=== PATIENT | male | born 1955 | race Caucasian/White ===

== ENCOUNTER 2016-08-04 23:14 | Inpatient (IN) | payer MEDICARE, BC ==
[~2016-08-04] VITALS: Ht 180.3 cm; Wt 128.6 kg
--- NOTE | ~2016-08-04 | EC ---
PATIENT:MILDRED BOYD DATE OF SERVICE: 08/06/16 SEX: M MEDICAL RECORD: [id number] DATE OF : [birth year] LOCATION:D.MS [facility] AGE OF PATIENT: 60 ADMISSION DATE: 08/06/16 REFERRING PHYSICIAN: INTERPRETING PHYSICIAN: MINA GRUBBS MD ECHOCARDIOGRAM REPORT ECHO CHARGES 4 ECHO COMPLETE CLINICAL DIAGNOSIS: FEVER/UNSTEADY GAIT ECHOCARDIOGRAPHIC MEASUREMENTS (adult normal given) AC root (d.<3.7cm) 3.4 LV Septum d (<1.2 cm> 1.1 Valve Excursion 1.8 LV Septum (systole) 1.6 Left Atria (s.<4.0cm> 3.9 LVPW d(<1.2cm) 1.1 RV (d.<2.3cm) 3.0 LVPW (sytole) 1.5 LV diastole(<5.6CM) 5.6 MV E-F(>70mm/sec) LV systole 3.8 LVOT Diameter 2.1 MV exc.(>10mm) 1.5 Est.ejection fraction (50-75%) Pericardial Effusion N DOPPLER: LVIT A 55.0 E 114 LA RVSP 28.0 LVOT 102 AOP1/2T Asc. Ao 147 RVOT 41.0 RA PA 77.0 AV Gradient Peak 8.7 AV Mean 4.7 AV Area 2.5 MV Gradient Peak 5.1 MV Mean 1.6 MV Area COMMENTS: Restorative Care Technician: Senia HARPEROE Waterproofer:1 Dr. Grubbs TAPE# PACS DATE OF SERVICE: 08/09/2016 Echocardiogram FINDINGS: 1. Left ventricular chamber size is within normal limits. Left ventricular systolic function is normal. Overall ejection fraction estimated at 55%. 2. Left atrium is within normal limits at 3.9 cm. Right atrium and right ventricular chamber sizes are mildly dilated. 3. Valvular structures have normal structure and motion. ECHOCARDIOGRAM REPORT [id number] MILDRED BOYD 4. Doppler interrogation reveals moderate mitral regurgitation, mild tricuspid regurgitation, no other valvular insufficiency or stenosis. Pulmonary systolic pressure is normal estimated 28 mmHg. 5. No evidence of pericardial effusion or left ventricular thrombus. TRANSINT:[id number] Voice Confirmation ID: [id number] DOCUMENT ID: [id number] MINA GRUBBS MD CC: [id number] DICTATION DATE: 08/10/16 1139 ABSTRACTER: 08/10/16 1646 ADM IN [facility] [address] [facility]
[~2016-08-04 23:14] MED LIST: ALDACTONE25 MG PO; CELEBREX200 MG PO; COREG6.25 MG PO; DEMADEX10 MG PO; K-DUR20 MEQ PO; PERCOCET 10/3251 TA1 PO
[2016-08-04 23:50] LABS: APPEARANCE CLEAR (CLEAR); BILIRUBIN NEGATIVE (NEGATIVE); COLOR YELLOW (YELLOW); GLUCOSE 1000 mg/dL (NEGATIVE); KETONE NEGATIVE (NEGATIVE); LEUKOCYTE ESTERASE NEGATIVE (NEGATIVE); NITRITE NEGATIVE (NEGATIVE); PROTEIN NEGATIVE (NEGATIVE); UROBILINOGEN NORMAL (NORMAL)
[2016-08-05 00:10] LABS: BASOPHILS 0.1 % (0-2); EOSINOPHILS 0.4 % (0-7); HEMATOCRIT 37.9 % (42.0-54.0); HEMOGLOBIN 12.6 g/dL (13.5-17.5); IMMATURE GRANULOCYTES 0.3 % (0-5); LYMPHOCYTES 8.4 % (15-50); MCH 32.7 pg (26.0-34.0); MCHC 33.2 g/dL (31.0-37.0); MCV 98.4 fL (80.0-100.0); MEAN PLATELET VOLUME 9.4 fL (7.4-10.4); MONOCYTES 11.2 % (2-11); NEUTROPHILS 79.6 % (40-80); RBC 3.85 10x6/uL (4.20-6.10); RDW 15.1 % (11.5-14.5); WBC 7.9 10x3/uL (4.8-10.8)
[2016-08-05 00:17] LABS: PLATELET COUNT 250 10x3/uL (130-400)
[2016-08-05 00:30] LABS: ALBUMIN 3.8 g/dL (3.4-5.0); ANION GAP 16.2 mmol/L (8-16); BILIRUBIN - TOTAL 0.46 mg/dL (0.2-1.3); CALCIUM 8.9 mg/dL (8.5-10.1); CARBON DIOXIDE 24.9 mmol/L (21.0-32.0); CREATININE - SERUM 2.2 mg/dL (0.6-1.3); POTASSIUM - SERUM 4.1 mmol/L (3.5-5.1); PROTEIN - SERUM 7.9 g/dL (6.4-8.2)
[2016-08-05 03:23] VITALS: BP 139/76; BMI 40.5
--- NOTE | 2016-08-05 07:05 | NUR ---
PATIENT RECEIVED ALERT IN LOW GARZA POSITION. NO SIGNS OF DISTRESS NOTED. DENIES NEEDS. SIDE RAILS UP X2. BED IN LOW POSTIION. CALL LIGHT IN REACH.
[2016-08-05 07:58] VITALS: BP 123/73
[2016-08-05] MEDS ORDERED: [UNRECOGNIZED DRUG - OTHER] PO (08:18)
[2016-08-05] MEDS ORDERED: METANX PO (08:18)
[2016-08-05] MEDS ORDERED: NUCYNTA ER150 MG PO (08:21)
[2016-08-05] MEDS ORDERED: MOBIC7.5 MG PO (08:24)
--- NOTE | 2016-08-05 08:30 | NUR ---
PATIENT IN LOW GARZA POSITION RESTING WITH EYES CLOSED. RESPIRATIONS EVEN AND UNLABORED. WAKES EASY. DENIES NEEDS. SIDE RAILS UP X2. BED IN LOW POSITION. CALL LIGHT IN REACH.
--- NOTE | 2016-08-05 11:18 | NUR ---
ALERT IN BED. NO SIGNS OF DISTRESS NOTED. SCHEDULED MEDICATION AMINISTERED. SIDE RAILS UP X2. BED IN LOW POSITION. CALL LIGHT IN REACH.
[2016-08-05 12:06] VITALS: BP 121/71
[2016-08-05 12:15] LABS: HEMOGLOBIN A1C 6.3 % (4.8-6.0)
[2016-08-05 12:26] LABS: THYROID STIMULATING HORMONE 0.78 uIU/mL (0.36-3.74)
--- NOTE | 2016-08-05 13:20 | NUR ---
PATIENT SITTING UP ON SIDE OF BED ALERT. NO SIGNS OF DISTRESS NOTED. BED IN LOW POSITION. CALL LIGHT IN REACH.
[2016-08-05] MEDS ORDERED: TRAZODONE HCL150 MG PO (13:41)
[2016-08-05] MEDS ORDERED: FARXIGA10 MG PO (13:42)
[2016-08-05 13:43] VITALS: Ht 180.3 cm; Wt 128.6 kg
[2016-08-05] MEDS ORDERED: MAG 6464 MG PO (13:43)
--- NOTE | 2016-08-05 15:22 | NUR ---
UP AMBULATING IN ROOM. NO SIGNS OF DISTRESS NOTED. GUEST AT BEDSIDE.
[2016-08-05 15:58] LABS: CKMB 1.4 U/L (0.0-3.6); CREATINE KINASE 264 UL (21-232); TROPONIN-I < 0.017 ng/mL (0.000-0.060)
--- NOTE | 2016-08-05 17:15 | NUR ---
PATIENT ALERT IN BED. NO SIGNS OF DISTRESS NOTED. REFUSES SCDS
--- NOTE | 2016-08-05 18:20 | NUR ---
INCENTIVE SPIROMETER AND USE ON TEACHING PROVIDED. PATIENT STATES UNDERSTANDING. DEEMONSTRATES CORRECT USE.
--- NOTE | 2016-08-05 19:00 | NUR ---
PATIENT JUST RETURNED FROM CT. AAOX4. RR EVEN AND UNLABORED. 0 S/S OF DISTRESS. DENIES ANY PAIN. IV TO RIGHT HAND PATENT WITH NO REDNESS OR SWELLING. O2 @ 2L VIA NC. SCD'S OFF AT THIS TIME. CALL LIGHT WITHIN REACH.
[2016-08-05 20:00] VITALS: BP 118/63
--- NOTE | 2016-08-05 21:15 | NUR ---
NIGHTTIME MEDICATIONS ADMINISTERED PER ORDER. HUMALOG HELD FOR BS OF 108. PATIENT REFUSING CARDIAC ENZYMES. STATED HE IS "TERRIFIED OF NEEDLES, AND HAS BEEN POKED ENOUGH."
[2016-08-06] VITALS: BP 102/56
--- NOTE | 2016-08-06 03:00 | NUR ---
PATIENT SLEEPING WITH NO DISTRESS NOTED. CALL LIGHT WITHIN REACH.
[2016-08-06 04:00] VITALS: BP 107/64
--- NOTE | 2016-08-06 07:00 | NUR ---
MORNING MEDICATION ADMINISTERED. HUMALOG HELD FOR BS OF 107.
--- NOTE | 2016-08-06 07:45 | NUR ---
PT ASSESSMENT COMPLETE AROUSES TO VERBAL STIMULI. ORINETD X 3 LUNGS WITH DIMINISHED BASES BILATERALLY NOTED BSA X 4 QUADS. ALL ADLS PER STAFF ASSIST. UP AD VIKA REFUSES SCDS WELL LAB DRAWS.
[2016-08-06 08:00] VITALS: BP 112/57
[2016-08-06 10:02] LABS: BASOPHILS 0.4 % (0-2); EOSINOPHILS 0.6 % (0-7); HEMOGLOBIN 11.7 g/dL (13.5-17.5); IMMATURE GRANULOCYTES 0.2 % (0-5); LYMPHOCYTES 14.4 % (15-50); MCH 32.6 pg (26.0-34.0); MCHC 32.5 g/dL (31.0-37.0); MCV 100.3 fL (80.0-100.0); MEAN PLATELET VOLUME 9.4 fL (7.4-10.4); MONOCYTES 6.4 % (2-11); PLATELET COUNT 204 10x3/uL (130-400); RBC 3.59 10x6/uL (4.20-6.10)
[2016-08-06 10:07] LABS: WBC 4.9 10x3/uL (4.8-10.8)
[2016-08-06 10:28] LABS: ALBUMIN 3.3 g/dL (3.4-5.0); ALKALINE PHOSPHATASE 61 U/L (46-116); ALT (SGPT) 34 U/L (10-68); CALCIUM 8.6 mg/dL (8.5-10.1); CARBON DIOXIDE 24.2 mmol/L (21.0-32.0); CHLORIDE - SERUM 103 mmol/L (98-107); CKMB 1.6 U/L (0.0-3.6); GLUCOSE 131 mg/dL (74-106); POTASSIUM - SERUM 3.9 mmol/L (3.5-5.1); PROTEIN - SERUM 7.2 g/dL (6.4-8.2); SODIUM 137 mmol/L (136-145); TROPONIN-I < 0.017 ng/mL (0.000-0.060)
[2016-08-06 10:40] LABS: CALC OSMOLALITY 275 mosm/kg (275-300); CREATINE KINASE 341 UL (21-232); CREATININE - SERUM 1.6 mg/dL (0.6-1.3); UREA NITROGEN 13 mg/dL (7-18); eGFR NON AFRICAN AMERICAN 47 mL/min (90-120)
[2016-08-06 12:55] VITALS: BP 120/64
--- NOTE | 2016-08-06 13:20 | NUR ---
AWAKE AND ALERT SITTING ON SIDE OF BED AT THIS TIME. RESPIRATIONS EVEN AND NON LABORED. DENIES NEEDS AT THIS TIME. CALL LIGHT IN REACH, WILL CONTINUE WITH PLAN OF CARE.
--- NOTE | 2016-08-06 15:11 | NUR ---
* Is the patient Alert and Oriented? Yes 0 * PCP [facility] 0 * Pharmacy [facility] 0 * Preadmission Environment Home with Family 0 * ADLs Independent 0 * Equipment None 0 * List name and contact numbers for known caregivers / representatives who currently or will assist patient after discharge: 0 * Community resources currently utilized None 0 * Additional services required to return to the preadmission environment? No 0 * Can the patient safely return to the preadmission environment? Yes 0 * Has this patient been hospitalized within the prior 30 days at any hospital? No 0 Grand Total: 0 Patient Name: MILDRED BOYD Admission Status: ER Accout number: [id number] Admission Date: 08-06-2016 : 1955 Admission Diagnosis: Attending: AMARA Current LOS: 1 Anticipated DC Date: Planned Disposition: Home Primary Insurance: MEDICARE A & B Discharge Planning Comments: CM met with patient to assess discharge planning needs. He states that he is independent and lives at home with his . His will be the one to drive him home. He denies any HH at this present time. CM will continue to follow and assist as needed PCP: [facility] Pharmacy: [facility] Receiving Lead: Stephany Bello
[2016-08-06 15:53] VITALS: BP 105/45
[2016-08-06 19:00] VITALS: BP 100/51
--- NOTE | 2016-08-07 01:40 | NUR ---
PT RESTING QUIETLY, EYES CLOSED. RESP EVEN, UNLABORED. NO DISTRESS NOTED. CONTINUE READY MIX TRUCK DRIVER'S PLAN OF CARE.
[2016-08-07 04:00] VITALS: BP 120/74
[2016-08-07 07:35] LABS: BASOPHILS 0.3 % (0-2); EOSINOPHILS 4.3 % (0-7); HEMATOCRIT 34.9 % (42.0-54.0); HEMOGLOBIN 11.1 g/dL (13.5-17.5); LYMPHOCYTES 23.5 % (15-50); MCH 31.9 pg (26.0-34.0); MCHC 31.8 g/dL (31.0-37.0); MCV 100.3 fL (80.0-100.0); MEAN PLATELET VOLUME 9.5 fL (7.4-10.4); MONOCYTES 10.7 % (2-11); NEUTROPHILS 61.2 % (40-80); PLATELET COUNT 185 10x3/uL (130-400); RBC 3.48 10x6/uL (4.20-6.10); WBC 3.8 10x3/uL (4.8-10.8)
--- NOTE | 2016-08-07 07:45 | NUR ---
PT AWAKE AND ALERT ORINETD X 3 LUNGS WITH NOTED DIMINISHED BASES BILATERAL BSA X 4 QUADS ABDOMEN FIRM AND NON TENDER ALL ADLS PER SELF CARE WITH STAFF STAND BY ASSIST. MAKES NEEDS KNOWN.
[2016-08-07 07:53] LABS: ANION GAP 13.3 mmol/L (8-16); BILIRUBIN - TOTAL 0.21 mg/dL (0.2-1.3); CALCIUM 8.5 mg/dL (8.5-10.1); CARBON DIOXIDE 24.2 mmol/L (21.0-32.0); CREATININE - SERUM 1.6 mg/dL (0.6-1.3); PROTEIN - SERUM 6.8 g/dL (6.4-8.2)
[2016-08-07 08:00] VITALS: BP 125/70
[2016-08-07 08:01] LABS: POTASSIUM - SERUM 4.5 mmol/L (3.5-5.1)
[2016-08-07 11:03] VITALS: BP 132/68
--- NOTE | 2016-08-07 11:49 | NUR ---
LYING IN BED,WITHOUT DISTRESS.IV ABX INFUSING ORDERED.CALL LIGHT IN REACH
--- NOTE | 2016-08-07 12:16 | NUR ---
PIV RESITED X 1 STICK 20 GA TO INNER LEFT FORARM. TOLERATED WELL. PT TREATED WITH TYLENOL FOR TEMP 100.8 EARLIER TEMP AT THIS ITME 98.8
--- NOTE | 2016-08-07 12:28 | NUR ---
Nutrition follow-up: Diet: low sodium regular texture with thin liquids per speech PO intake 100% of some meals Labs reviewed +BM Wt:[id number]# RDN following.
[2016-08-07 15:01] VITALS: BP 107/65
--- NOTE | 2016-08-07 18:30 | NUR ---
PATIENT IS RESTING IN BED WITH AT BEDSIDE. NO VISIBLE SIGNS OF DISTRESS. PATIENT DENIES NEEDS AT THIS TIME. BED IN LOWEST POSITION AND CALL LIGHT WITHIN REACH. ENCOURAGED THE PATIENT TO CALL IF HE HAS NEEDS.
[2016-08-07 20:00] VITALS: BP 125/77
[2016-08-08 00:11] VITALS: BP 113/58
[2016-08-08 04:00] VITALS: BP 114/51
[2016-08-08 05:36] LABS: BASOPHILS 0.3 % (0-2); EOSINOPHILS 2.1 % (0-7); HEMATOCRIT 34.8 % (42.0-54.0); HEMOGLOBIN 11.3 g/dL (13.5-17.5); LYMPHOCYTES 27.7 % (15-50); MCH 32.3 pg (26.0-34.0); MCHC 32.5 g/dL (31.0-37.0); MCV 99.4 fL (80.0-100.0); MEAN PLATELET VOLUME 9.9 fL (7.4-10.4); MONOCYTES 10.4 % (2-11); NEUTROPHILS 59.5 % (40-80); PLATELET COUNT 176 10x3/uL (130-400); WBC 2.9 10x3/uL (4.8-10.8)
[2016-08-08 05:59] LABS: ALBUMIN 3.1 g/dL (3.4-5.0); ANION GAP 9.9 mmol/L (8-16); BILIRUBIN - TOTAL 0.2 mg/dL (0.2-1.3); CALCIUM 8.6 mg/dL (8.5-10.1); CARBON DIOXIDE 28.5 mmol/L (21.0-32.0); CREATININE - SERUM 1.7 mg/dL (0.6-1.3); POTASSIUM - SERUM 4.4 mmol/L (3.5-5.1); PROTEIN - SERUM 7.1 g/dL (6.4-8.2); T4 THYROXIN - FREE 1.22 ng/dL (0.76-1.46); THYROID STIMULATING HORMONE 2.17 uIU/mL (0.36-3.74)
--- NOTE | 2016-08-08 08:00 | NUR ---
ASSESSMENT COMPLETE. SL TO L FA PATENT. O2 2L NC IN USE. CONTINOUS PULSE OX IN USE. FREQUENT NON-PRODUCTIVE COUGH. DENIES ANY NEEDS AT PRESENT.
[2016-08-08 08:59] VITALS: BP 107/66
--- NOTE | 2016-08-08 12:00 | NUR ---
NO CHANGES NOTED AT PRESENT.
[2016-08-08 13:13] VITALS: BP 156/85
--- NOTE | 2016-08-08 15:00 | NUR ---
AMBULATING IN HALLWAY WITH FAMILY.
--- NOTE | 2016-08-08 17:06 | NUR ---
URINE SPECIMEN SENT TO LAB.
[2016-08-08 17:07] LABS: APPEARANCE CLEAR (CLEAR); BILIRUBIN NEGATIVE (NEGATIVE); COLOR YELLOW (YELLOW); GLUCOSE NEGATIVE (NEGATIVE); KETONE NEGATIVE (NEGATIVE); LEUKOCYTE ESTERASE NEGATIVE (NEGATIVE); NITRITE NEGATIVE (NEGATIVE); PROTEIN NEGATIVE (NEGATIVE); UROBILINOGEN NORMAL (NORMAL)
[2016-08-08 17:43] VITALS: BP 118/65
--- NOTE | 2016-08-08 18:50 | NUR ---
OFF FLOOR TO MRI VIA .
--- NOTE | 2016-08-08 19:12 | NUR ---
RETURNED TO ROOM FROM MRI. UNABLE TO PERFORM MRI DUE TO PATIENT SIZE.
--- NOTE | 2016-08-08 19:16 | NUR ---
Patient body habitus prevented MRI scan. Dr. Man and TANYA Sanders notified.
[2016-08-08 20:00] VITALS: BP 128/68
--- NOTE | 2016-08-08 22:20 | NUR ---
PATIENT IS SITTING UP IN THE CHAIR WITH DAUGHTERS AT BEDSIDE. PATIENT REQUESTED THAT HIS TORSEMIDE BE RESTARTED IN THE AM. PATIENT DENIES OTHER NEEDS AT THIS TIME. ADMINISTERED MEDS PER ORDERS AND ENCOURAGED THE PATIENT TO CALL IF HE HAS FURTHER NEEDS.
[2016-08-08] MEDS ORDERED: LASIX20 MG PO (22:30)
--- NOTE | 2016-08-08 22:30 | NUR ---
REPULLED TRAZODONE AND K-DUR FROM THE P[facility]. PATIENT DROPPED THE INITIAL PILLS ON THE FLOOR.
[2016-08-09] VITALS: BP 131/75
[2016-08-09 04:00] VITALS: BP 147/51
--- NOTE | 2016-08-09 07:40 | NUR ---
ASSESSMENT COMPLETE. SL TO L FA.O2 2L NC IN USE. DENIES ANY NEEDS AT PRESENT.
[2016-08-09 08:02] LABS: HEMATOCRIT 37.1 % (42.0-54.0); HEMOGLOBIN 12.2 g/dL (13.5-17.5); MCH 32.1 pg (26.0-34.0); MCHC 32.9 g/dL (31.0-37.0); MCV 97.6 fL (80.0-100.0); PLATELET COUNT 168 10x3/uL (130-400); RDW 14.3 % (11.5-14.5)
[2016-08-09 08:11] LABS: WBC 1.8 10x3/uL (4.8-10.8)
[2016-08-09 08:16] LABS: ALBUMIN 3.4 g/dL (3.4-5.0); ANION GAP 15.7 mmol/L (8-16); BILIRUBIN - TOTAL 0.23 mg/dL (0.2-1.3); CALCIUM 9.5 mg/dL (8.5-10.1); CARBON DIOXIDE 22.8 mmol/L (21.0-32.0); CREATININE - SERUM 1.3 mg/dL (0.6-1.3); POTASSIUM - SERUM 4.5 mmol/L (3.5-5.1); PROTEIN - SERUM 7.9 g/dL (6.4-8.2)
[2016-08-09 08:49] LABS: LYMPHOCYTES 24 % (15-50); MONOCYTES 1 % (2-11); NEUTROPHILS 74 % (40-80); PLATELET ESTIMATE NORMAL; ROULEAUX OCC
[2016-08-09 09:02] VITALS: BP 142/93
--- NOTE | 2016-08-09 11:00 | NUR ---
VISITING WITH FAMILY. DENIES ANY NEEDS AT PRESENT.
--- NOTE | 2016-08-09 12:07 | NUR ---
PLACED IN NEUTROPENIC ISOLATION.
[2016-08-09 12:44] VITALS: BP 129/75
--- NOTE | 2016-08-09 16:00 | NUR ---
VISITING WITH FAMILY. DENIES ANY NEEDS AT PRESENT.
[2016-08-09 17:19] VITALS: BP 126/75
--- NOTE | 2016-08-09 19:15 | NUR ---
PATIENT WALKING AROUND THE UNIT WITH HIS AND DAUGHTER. PATIENT HAS NO VISIBLE SIGNS OF DISTRESS. ENCOURAGED THE PATIENT TO CALL IF HE HAS NEEDS.
[2016-08-09 20:00] VITALS: BP 114/70
[2016-08-10] VITALS: BP 93/52
[2016-08-10 04:00] VITALS: BP 109/59
[2016-08-10 05:20] LABS: BASOPHILS 0.1 % (0-2); EOSINOPHILS 0 % (0-7); HEMATOCRIT 37.2 % (42.0-54.0); HEMOGLOBIN 12.2 g/dL (13.5-17.5); LYMPHOCYTES 5.8 % (15-50); MCH 32.3 pg (26.0-34.0); MCHC 32.8 g/dL (31.0-37.0); MCV 98.4 fL (80.0-100.0); MEAN PLATELET VOLUME 10.2 fL (7.4-10.4); MONOCYTES 3.3 % (2-11); NEUTROPHILS 89.8 % (40-80); PLATELET COUNT 183 10x3/uL (130-400); RBC 3.78 10x6/uL (4.20-6.10); RDW 14.4 % (11.5-14.5)
[2016-08-10 05:29] LABS: WBC 18.6 10x3/uL (4.8-10.8)
[2016-08-10 05:51] LABS: ALBUMIN 3.7 g/dL (3.4-5.0); ANION GAP 14.9 mmol/L (8-16); BILIRUBIN - TOTAL 0.24 mg/dL (0.2-1.3); CALCIUM 9.1 mg/dL (8.5-10.1); CARBON DIOXIDE 29.4 mmol/L (21.0-32.0); CREATININE - SERUM 1.7 mg/dL (0.6-1.3); POTASSIUM - SERUM 4.3 mmol/L (3.5-5.1); PROTEIN - SERUM 7.6 g/dL (6.4-8.2)
--- NOTE | 2016-08-10 07:30 | NUR ---
RECIEVED PT DURING WALKING ROUNDS. PT RESTING IN BED WITH NO COMPPLAINTS OF PAIN AT THIS TIME. PT STATED THAT THE TOP OF HIS LEG FEELS NUMB, THE PT STATED THAT HE SPOKE WITH THE DOCTOR AND THAT HE WAS GOING TO WALK AROUND TO "WORK IT OUT". ASSESSMENT DONE PER FLOWSHEET. BED IN LOW POSITION AND CALL LIGHT WITHIN REACH. WILL CONTINUE TO MONITOR.
[2016-08-10 07:59] LABS: APTT 23.6 SECONDS (22.8-39.4); INR 0.99 (0.85-1.17); PROTIME 12.9 SECONDS (11.6-15.0)
[2016-08-10 08:00] VITALS: BP 112/74
--- NOTE | 2016-08-10 10:11 | EC ---
PATIENT:MILDRED BOYD DATE OF SERVICE: 08/06/16 SEX: M MEDICAL RECORD: [id number] DATE OF : [birth year] LOCATION:D.MS [facility] AGE OF PATIENT: 60 ADMISSION DATE: 08/06/16 REFERRING PHYSICIAN: INTERPRETING PHYSICIAN: MINA GRUBBS MD ECHOCARDIOGRAM REPORT ECHO CHARGES 4 ECHO COMPLETE CLINICAL DIAGNOSIS: CHF HX CHF/LOWER LOBECTOMY ECHOCARDIOGRAPHIC MEASUREMENTS (adult normal given) AC root (d.<3.7cm) 3.9 LV Septum d (<1.2 cm> 1.6 Valve Excursion 1.6 LV Septum (systole) 1.7 Left Atria (s.<4.0cm> 4.2 LVPW d(<1.2cm) 1.6 RV (d.<2.3cm) 4.2 LVPW (sytole) 1.7 LV diastole(<5.6CM) 4.6 MV E-F(>70mm/sec) LV systole 3.0 LVOT Diameter 2.4 MV exc.(>10mm) 1.5 Est.ejection fraction (50-75%) Pericardial Effusion N DOPPLER: LVIT A 56.0 E 82.0 LA RVSP LVOT 91 AOP1/2T Asc. Ao RVOT 121 RA PA AV Gradient Peak 5.90 AV Mean 3.10 AV Area 2.6 MV Gradient Peak 2.81 MV Mean 1.05 MV Area COMMENTS: Auto Apprentice Mechanic: Crista LARIOS Toggle Press Folder And Feeder:Senia Grubbs TAPE# PACS DATE OF SERVICE: 08/07/2016 Echocardiogram FINDINGS: 1. Left ventricular chamber size is within normal limits. Left ventricular systolic function is normal. Overall ejection fraction estimated at 60%. 2. Left atrium is mildly enlarged at 4.2 cm. Right atrium and right ventricular chamber sizes are as well mildly dilated. 3. Valvular structures have normal structure and motion. ECHOCARDIOGRAM REPORT [id number] MILDRED BOYD 4. Doppler interrogation reveals mild mitral regurgitation, no other valvular insufficiency or stenosis. 5. No evidence of pericardial effusion or left ventricular thrombus. TRANSINT:[id number] Voice Confirmation ID: [id number] DOCUMENT ID: [id number] MINA GRUBBS MD at 1011 CC: [id number] DICTATION DATE: 08/07/161720 SEMICONDUCTOR WAFERS ETCHER STRIPPER: 08/08/16 0156 ADM IN [facility] [address] [facility] [place] [address]
[2016-08-10 11:35] VITALS: BP 116/72
--- NOTE | 2016-08-10 11:40 | NUR ---
PT RETURNED TO FLOOR AT THIS TIME FROM LUMBAR PUNCTURE. LAYING FLAT IN BED WITH NO COMPLAINTS OF PAIN OR DISCOMFORT. BED IN LOW POSITION AND CALL LIGHT WITHIN REACH. WILL CONTINUE TO MONITOR.
[2016-08-10 12:07] LABS: GLUCOSE - CSF 73 MG/DL (40-75); PROTEIN - CSF 133 MG/DL (12-60)
[2016-08-10 12:58] LABS: APPEARANCE - CSF BLOODY; LYMPH - CSF 17 % (40-80); NEUT - CSF 83 % (0-6); RBC - CSF 20054 cmm (0-0)
[2016-08-10 13:01] LABS: LYMPH - CSF 20 % (40-80); NEUT - CSF 80 % (0-6); RBC - CSF 14080 cmm (0-0)
[2016-08-10 13:02] LABS: APPEARANCE - CSF BLOODY
[2016-08-10 15:24] VITALS: BP 124/68
--- NOTE | 2016-08-10 20:00 | NUR ---
ASSESSMENT PER FLOWSHEET. IV PATENT LEFT FOREARM SALINE LOCKED. AMBULATES AD VIKA IN HALLWAYS. BALANCE AND GAIT STEADY. IN ROOM.
[2016-08-10 21:00] VITALS: BP 115/79
--- NOTE | 2016-08-10 21:15 | NUR ---
MEDS GIVEN PER APR. O2 OFF AT THIS TIME.
--- NOTE | 2016-08-10 23:00 | NUR ---
C/O BEING SHORT OF BREATH CHECKED O2 SAT SHOWS 88-89% ON ROOM AIR. REPLACED O2 AT 3L/M PER NC. O2 SAT INCREASES TO 95 % FEELING BETTER.NOTIFIED RT TECH TO CHECK ON NEXT TX TIME.
[2016-08-11] VITALS: BP 115/74
--- NOTE | 2016-08-11 | NUR ---
EYES CLOSED RESPIRATIONS WITH EASE AND UNLABORED.
--- NOTE | 2016-08-11 02:00 | NUR ---
EYES CLOSED RESPIRATIONS WITH EASE AND UNLABORED.
[2016-08-11 04:00] VITALS: BP 97/56
--- NOTE | 2016-08-11 04:35 | NUR ---
RESTING QUIETLY DENIES NEEDS.
--- NOTE | 2016-08-11 06:48 | EEG ---
PATIENT:MILDRED BOYD DATE OF SERVICE: 08/06/16 MEDICAL RECORD: [id number] DATE OF : 51 LOCATION:D.221 D.MS ADMISSION DATE: 08/06/16 REFERRING PHYSICIAN: INTERPRETING PHYSICIAN: CAROLINE STILES MD DATE OF SERVICE: 08/10/2016 Referred by myself as an inpatient, currently in room 2214. ELECTROENCEPHALOGRAM NUMBER [id number]. DATE OF EXAMINATION: 08/09/2016 at 2:50 p.m. TECHNICAL DATA: This electroencephalographic recording consisted of approximately 20 minutes of data collection utilizing the international 10/20 system of electrode placement and both referential and non-referential montages. Sixteen channels of electrocerebral recording are accompanied by a 17th channel dedicated to the electrocardiographic rhythm and 2 channels of electromyographic recording. Recording is performed in the awake and drowsy states utilizing activation by photic stimulation. ELECTROENCEPHALOGRAPHIC DATA: The awake state comprises approximately 60% of the recorded electrocerebral activity. Electromyographic artifact is prominent and rapid eye movements are seen. The posterior dominant background consists of a well-developed, symmetric, rhythmic, waxing and waning alpha activity of 7-8 Hz, which is suppressed by eye opening. The drowsy state comprises the remaining portion of the recorded electrocerebral activity. Electromyographic artifact is diminished and rapid eye movements are not seen. The posterior dominant background is at times relatively suppressed. No abnormal or focal slowing is identified. No epileptiform discharges are seen. Photic stimulation induces no abnormal change in the recorded electrocerebral activity. INTERPRETATION: Normal (awake and drowsy). This is a normal electroencephalographic recording. TRANSINT:[id number] Voice Confirmation ID: [id number] DOCUMENT ID: [id number] CAROLINE STILES MD at 0648 CC: [id number] DICTATION DATE: 08/10/16 0706 SLOT EDITOR: 08/10/16 0816 ADM IN [facility] [address] [place] [address]
[2016-08-11 07:10] LABS: CALCIUM 8.7 mg/dL (8.5-10.1); CARBON DIOXIDE 29.8 mmol/L (21.0-32.0); CREATININE - SERUM 2.1 mg/dL (0.6-1.3); POTASSIUM - SERUM 3.8 mmol/L (3.5-5.1)
[2016-08-11 07:12] LABS: HEMATOCRIT 35.9 % (42.0-54.0); HEMOGLOBIN 11.8 g/dL (13.5-17.5); MCH 32.2 pg (26.0-34.0); MCHC 32.9 g/dL (31.0-37.0); MCV 98.1 fL (80.0-100.0); MEAN PLATELET VOLUME 10.3 fL (7.4-10.4); PLATELET COUNT 189 10x3/uL (130-400); RBC 3.66 10x6/uL (4.20-6.10); RDW 14.8 % (11.5-14.5); WBC 21.4 10x3/uL (4.8-10.8)
[2016-08-11 07:29] LABS: LYMPHOCYTES 2 % (15-50); MONOCYTES 1 % (2-11); NEUTROPHILS 71 % (40-80); PLATELET ESTIMATE NORMAL
[2016-08-11 07:30] LABS: ANISOCYTOSIS OCC
--- NOTE | 2016-08-11 07:35 | NUR ---
PT AOX4 RESP EVEN AND NONLABORED PT DENIES NEEDS AT THIS TIME IV TO LEFT FOREARM PATENT AND INTACT SRX2 BED AT LOWEST SETTING CALL LIGHT WITHIN REACH WILL CONTINUE TO MONITOR
[2016-08-11 08:17] VITALS: BP 119/86
[2016-08-11] MEDS ORDERED: BENZONATATE200 MG PO (11:42)
[2016-08-11] MEDS ORDERED: MUCINEX DM ER1 EAC1 PO (11:42)
[2016-08-11] MEDS ORDERED: PROTONIX40 MG PO (11:42)
[2016-08-11] MEDS ORDERED: IPRAT-ALBUT 0.5-3 ML UPD (11:43)
[2016-08-11] MEDS ORDERED: OMNICEF300 MG PO (11:44)
[2016-08-11] MEDS ORDERED: ATIVAN0.5 MG PO (12:28)
[2016-08-11 12:32] VITALS: BP 110/79
--- NOTE | 2016-08-11 12:57 | NUR ---
CM REASSESSMENT NOTE: PATIENT IS DISCHARGING HOME- DRIVING. PATIENT DOES NOT WANT HOME HEALTH. PATIENT WILL TELEVISION PARTS TESTER HIS NEBULIZER AT [facility] AT DISCHARGE ON [address].
--- NOTE | 2016-08-11 14:49 | NUR ---
IV DISCONTINUED WITH CATHETER INTACT AT THIS TIME PT GIVEN DISCHARGE INSTRUCTIONS AND HARD COPY OF PRESCRIPTION OF ATIVAN AND 10 TABLET OF PT OWN PERSONAL PAIN MED NUCYNTA GIVEN BACK TO PT AT THIS TIME
--- NOTE | 2016-08-11 15:00 | NUR ---
PT TAKEN VIA WHEELCHAIR TO PRIVATE VEHICLE AT THIS TIME
[2016-08-11 18:09] LABS: ACID FAST SMEAR Negative (()); AFB SPECIMEN PROCESSING Concentration (())
[2016-08-12 13:21] LABS: FUNGUS STAIN Final report (())
[2016-08-12 14:23] LABS: IGGS - IGG INDEX CSF 0.8 (0.0-0.7); IGGS - IGG SYNTHESIS RATE CSF 30.2 mg/day (-9.9 TO +3.3); MYELIN BASIC PROTEIN, CSF 1.3 ng/mL (0.0-1.2)
[2016-08-14 13:16] LABS: FUNGUS MYCOLOGY CULTURE Preliminary report (())
== END 2016-08-11 15:00 | disposition home or self-care (01) | DRG 193 ==
LOC: D.ER 23:14 → D.MS 08-05 01:17 → OBSVTIME 08-05 01:18 → D.MS 08-06 14:29
PROVIDERS: Family Medicine; General Practice; Internal Medicine Pulmonary Disease; Neurological Surgery; ADMIT Family Medicine Adult Medicine
PROC: 009U3ZX Drainage of Spinal Canal, Percutaneous Approach, Diagnostic (ICD-10-PCS; principal; 2016-08-10)
PROC: B01B1ZZ Fluoroscopy of Spinal Cord using Low Osmolar Contrast (ICD-10-PCS; 2016-08-10)
DX: J18.1 Lobar pneumonia, unspecified organism (principal); G93.41 Metabolic encephalopathy; N17.9 Acute kidney failure, unspecified; E11.65 Type 2 diabetes mellitus with hyperglycemia; E11.40 Type 2 diabetes mellitus with diabetic neuropathy, unspecified; B18.2 Chronic viral hepatitis C; F41.9 Anxiety disorder, unspecified; Z85.72 Personal history of non-Hodgkin lymphomas; Z87.891 Personal history of nicotine dependence; E11.22 Type 2 diabetes mellitus with diabetic chronic kidney disease; N18.9 Chronic kidney disease, unspecified; R32 Unspecified urinary incontinence; R47.1 Dysarthria and anarthria